=== PATIENT | male | born 1955 | race African-American/Black ===

== ENCOUNTER 2023-05-27 18:39 | Inpatient (IN) | payer OTHER, SELFPAY ==
[2023-05-27] VITALS (23 sets, daily range): BP systolic 43–148; BP diastolic 25–74; PULSE 90–144; RESP 15–28; TEMP 38.6–42.2; O2SAT 94–100
--- NOTE | ~2023-05-27 | XR_ITS ---
EXAMINATION: XR chest 1V portable DATE: 05/28/2023 05:17 INDICATION: Respiratory distress while intubated TECHNIQUE: frontal view of the chest was obtained. COMPARISON: Chest radiograph and CT dated 05/27/2023 FINDINGS: Endotracheal tube tip 0.4 cm above the klaudia. Nasogastric tube with proximal side-port in the body o f the stomach and distal tip collimated beyond the inferior margin of the [id number]. Unchanged elevation the left hemidiaphragm with unchanged associated mild left basilar atelectasis. N o new airspace opacities, pulmonary edema, pleural effusion or pneumothorax. The cardiomediastinal si lhouette is normal. IMPRESSION: 1. Elevation the left hemidiaphragm with left basilar atelectasis. 2. Endotracheal tube tip 0.4 cm above the klaudia. Reviewed, dictated and finalized at location A.
--- NOTE | ~2023-05-27 | CT_ITS ---
EXAMINATION: CT brain wo con DATE: 05/27/2023 23:37 INDICATION: Altered mental status TECHNIQUE: Computed tomography (CT) of the head was performed without intravenous contrast. Sagittal and coronal reconstructions were performed. The mA was adjusted according to patient size. Iterative reconstruction technique was employed. The dose-length product was 1362.00 mGy-cm. COMPARISON: None FINDINGS: No acute intracranial hemorrhage, acute infarction or abnormal extra axial fluid collection. There is mild scattered white matter hypoattenuation consistent with chronic small vessel ischemic disease. S ymmetric prominence of the sulci consistent with mild age-appropriate diffuse cerebral volume loss. V entricles are normal and symmetric. No mass/mass effect. Moderate mucosal thickening the left sphenoi d sinus which demonstrates thickened sclerotic alvarez consistent with chronic sinusitis. The orbits an d mastoid air cells are normal. Portion of a likely endotracheal tube is seen extending through the o ropharynx. IMPRESSION: 1. Normal aging brain. No acute intracranial process. 2. Chronic left sphenoid sinusitis. Reviewed, dictated and finalized at location A.
--- NOTE | ~2023-05-27 | US_ITS ---
EXAMINATION: US renal BI DATE: 05/28/2023 10:47 INDICATION: Acute renal insufficiency. Assess for hydronephrosis. TECHNIQUE: Multiple ultrasound grayscale images of the kidneys were obtained. COMPARISON: CT dated 05/27/2023 FINDINGS: The right kidney measures 12.0 x 5.1 x 6.9 cm. The left kidney measures 12.3 x 6.6 x 5.1 cm. There is bilateral diffuse increased renal cortical echogenicity consistent with medical renal disease. There is no hydronephrosis in either kidney. No stones identified. There is small amount of bilateral per inephric fluid which is new since the prior CT. The bladder is decompressed around a Katz catheter w hich limits evaluation. IMPRESSION: 1. Bilateral increased renal cortical echogenicity consistent with medical renal disease. No hydrone phrosis. Reviewed, dictated and finalized at location A. IMPRESSION: 1. Bilateral increased renal cortical echogenicity consistent with medical jass al disease. No hydronephrosis.
--- NOTE | ~2023-05-27 | US_ITS ---
EXAMINATION: US abdomen limited DATE: 05/28/2023 10:46 INDICATION: Elevated liver function tests TECHNIQUE: Multiple grayscale and Doppler ultrasound images of the abdomen were obtained. COMPARISON: CT dated 05/27/2023 FINDINGS: The body the pancreas appears normal on dilated main pancreatic duct which measures up to 5 mm. A few small echogenic foci along the main pancreatic duct potentially representing stones or debris. Visua lized proximal inferior vena cava is normal. Liver has normal echogenicity and contour, with a smooth surface. No liver lesion identified. No intrahepatic biliary duct dilation suspected. Portal venous flow was seen in the hepatopetal, normal direction and has normal Doppler waveform. There are numerou s shadowing gallstones in the dependent aspect of the otherwise normal gallbladder with no wall thick ening and with reported negative sonographic Kingston's sign. Common bile duct measures up to 5 mm whic h remains within normal limits. IMPRESSION: 1. Cholelithiasis without gallbladder dilation, wall thickening or positive Kingston sign to suggest ac karen cholecystitis. 2. Dilated main pancreatic duct which could represent sequela of chronic pancreatitis. A few echogeni c foci along the dilated duct which could represent stones or debris and would correlate with lipase levels. Could also consider further evaluation with MRCP as clinically indicated. Reviewed, dictated and finalized at location A. IMPRESSION: 1. Cholelithiasis without gallbladder dilation, wall thickening or positive Mur phy sign to suggest acute cholecystitis. 2. Dilated main pancreatic duct which could represent sequela of chronic pancre atitis. A few echogenic foci along the dilated duct which could represent stone s or debris and would correlate with lipase levels. Could also consider further evaluation with MRCP as clinically indicated.
--- NOTE | ~2023-05-27 | XR_ITS ---
EXAMINATION: XR_KUBGTUBINS_CR DATE: 05/28/2023 05:19 INDICATION: Orogastric tube placement TECHNIQUE: AP view of the abdomen was obtained for assessment of orogastric tube repositioning. COMPARISON: None. FINDINGS: Orogastric tube tip in proximal side port in the body of the stomach. Endotracheal tube tip 9 mm abov e the klaudia. No dilated loops of gas-filled bowel in the visualized abdomen. Elevation of left hemid iaphragm with left basilar atelectasis. Prominent dystrophic calcifications at the head the pancreas consistent with sequela of chronic pancreatitis. There are bilateral nephrograms likely related to re cent prior contrast enhanced CT . IMPRESSION: 1. Orogastric tube in the stomach. Reviewed, dictated and finalized at location A.
--- NOTE | ~2023-05-27 | XR_ITS ---
EXAMINATION: XR_KUBGTUBINS_CR DATE: 05/28/2023 08:15 INDICATION: Nasogastric tube placement TECHNIQUE: AP view of the upper abdomen and including the chest was obtained for assessment of nasoga stric tube position COMPARISON: 05/28/2023 at 4:35 AM FINDINGS: Endotracheal tube tip 2.0 cm above the klaudia. Nasogastric tube has been withdrawn slightly with tip in the proximal body of the stomach and proximal side naila couple centimeter the level of the gastro esophageal junction. Persistent elevation of left hemidiaphragm with mild left basilar atelectasis. C ardiomediastinal silhouette is normal. IMPRESSION: 1. Endotracheal tube and nasogastric tube in expected position. 2. Mild left basilar atelectasis. Reviewed, dictated and finalized at location A.
--- NOTE | ~2023-05-27 | CT_ITS ---
EXAMINATION: CT chest abdomen pelvis w con DATE: 05/27/2023 23:38 INDICATION: Sepsis. TECHNIQUE: Computed tomography (CT) of the chest, abdomen, and pelvis was performed with 100 mL Omnip aque-350 intravenous contrast. Automated exposure control and iterative reconstruction technique were employed. The dose-length product was 612.61 mGy-cm. COMPARISON: None FINDINGS: CHEST CT: Endotracheal tube tip 4 mm above level of the klaudia. Mild upper lung predominant emphysema. Bronchie ctasis, volume loss and atelectasis/scarring in the left lower lobe. There is associated elevation th e left hemidiaphragm. No pneumonia, pulmonary edema, pleural effusion or pneumothorax. Heart size is normal. No pericardial or pleural effusion. Thoracic aorta is normal in caliber with no dissection. N o pathologically enlarged thoracic lymphadenopathy. Fluid potentially refluxed within the mid to dist al esophagus. ABDOMEN/PELVIS CT: Numerous gallstones nearly filling the otherwise normal-appearing gallbladder. Liver, spleen, bilater al adrenal glands and kidneys are normal. Numerous calcifications in the head and uncinate process of the pancreas couple additional calcific location at the tail of pancreas consistent with sequela of chronic pancreatitis. There is dilation of the main pancreatic duct which measures 6 mm at the neck o f the pancreas and 4.5 mm at the tail of the pancreas which could also represent sequela of chronic p ancreatitis. No evident peripancreatic inflammatory stranding to suggest acute pancreatitis. Katz ca theter within the decompressed bladder. Fluid within multiple loops nondilated small bowel as well as in the proximal colon which could be seen with diarrhea. There is a small amount of stool in the sig moid colon and larger 7.5 cm diameter ball of stool at the rectum. There is a likely temperature prob e in the rectum. Normal appendix. No free intraperitoneal gas or fluid. No pathologically enlarged ab dominal or pelvic lymphadenopathy. There is calcified atherosclerosis of the aorta and many of the ot her arteries. Right common femoral central venous catheter as well as and right common femoral arteri al catheter with distal tips terminating in the right external iliac vein and artery respectively. Mi ld lower thoracic dextrocurvature and thoracolumbar levocurvature. IMPRESSION: 1. Scattered fluid in the small bowel and proximal colon consistent with nonspecific diarrhea. Correl ate clinically for enteritis. 2. Cholelithiasis. 3. Dilated main pancreatic duct and multiple dystrophic pancreatic parenchymal calcifications, most l ikely sequela of chronic pancreatitis. No findings to suggest acute pancreatitis however could consid er correlation with lipase levels. 4. Elevation the left hemidiaphragm with atelectasis/scarring and bronchiectatic changes at the left lower lobe. Reviewed, dictated and finalized at location A. IMPRESSION: 1. Scattered fluid in the small bowel and proximal colon consistent with nonspe cific diarrhea. Correlate clinically for enteritis. 2. Cholelithiasis. 3. Dilated main pancreatic duct and multiple dystrophic pancreatic parenchymal calcifications, most likely sequela of chronic pancreatitis. No findings to sug gest acute pancreatitis however could consider correlation with lipase levels. 4. Elevation the left hemidiaphragm with atelectasis/scarring and bronchiectati c changes at the left lower lobe.
--- NOTE | ~2023-05-27 | XR_ITS ---
XR chest 1V portable DATE: 05/29/2023 05:50 INDICATION: Respiratory distress. Mechanical ventilation. TECHNIQUE: Portable AP chest on 05/29/2023 at 0503 hours COMPARISON: 05/28/2023 portable AP chest at 0434 hours FINDINGS: ET tube in satisfactory position approximately 5 cm above klaudia. NG tube in stomach. No ce ntral lines. There is mild patchy infiltrate and/atelectasis in both lower lung zones, involving the lower lobes. The lungs otherwise appear clear. No pulmonary vascular congestion. Slight blunting of the left costo phrenic angle might indicate minimal left pleural effusion. Diffuse osteopenia. IMPRESSION: Mild patchy bibasilar infiltrate and/atelectasis Reviewed, dictated and finalized at location A.
--- NOTE | ~2023-05-27 | XR_ITS ---
EXAMINATION: XR chest 1V portable DATE: 05/27/2023 19:18 INDICATION: Post intubation TECHNIQUE: frontal view of the chest was obtained. COMPARISON: None FINDINGS: Endotracheal tube tip 6.5 cm above the klaudia. Elevation of the left hemidiaphragm. Lungs are clear w ith no focal airspace opacities, pulmonary edema, pleural effusion or pneumothorax. Heart size is nor mal. IMPRESSION: 1. Endotracheal tube tip 6.5 cm above the klaudia. Consider advancement by 4 cm. 2. Elevation the left hemidiaphragm. No other evident cardiopulmonary disease. Reviewed, dictated and finalized at location A.
--- NOTE | 2023-05-27 19:05 | ED.GENADULT ---
HPI - General Adult General Chief complaint: Unspecified Stated complaint: unresponsive Time Seen by Provider: 05/27/23 19:05 History of Present Illness HPI narrative: Patient is a 67 year old male with unknown medical history here with altered mental status. Patient was reportedly found in his vehicle, unresponsive. EMS had a normal blood glucose and was getting bagged respirations followed by a field intubation. His oral temperature for him was 106F. On arrival to ED he is unresponsive with no ability to provide history. Additional history from sister who was with him. She notes that they went to the grocery store and attempted to go inside. At that point she had noticed he seemed wobbly and had stooled himself so staff helped him into the car. His sister drove him home and noticed he was more altered. She gave him a glass of water and he could not get out of the vehicle. At this point she called EMS. Sister is DPOA. 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 Surgical History Surgical History Surgical history unknown Family History Family History Mother Hypertension Cerebrovascular accident Mother No problems noted. Other Family history unknown Social History Social History Social History: The patient lives with his sister in [place]. 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 I believe the patient is a former smoker. Surrogate medical decision maker: Jimbo or Yanick Manzanares, siblings. Code status: Full code. Smoking packs per day: 0.5 Smoking cigarettes per day: 10.0 Smoking status: Heavy tobacco smoker Tobacco type: cigarettes Second hand tobacco smoke exposure: Yes Alcohol intake: former Substance use: former Spiritual care concerns: No Exam Narrative: GENERAL: unresponsive, warm to touch HEAD: Normocephalic, atraumatic. EYES: pupils 5 mm, minimally reactive ENT: Nares clear. Mucous membranes moist. NECK: Supple. CHEST: Assisted ventilations with bag HEART: Tachycardic. Normal peripheral pulses. ABDOMEN: Soft, nontender, nondistended. EXTREMITIES: No evidence of trauma SKIN: Warm to touch NEURO: Unresponsive Course Course Emergency Course: Patient seen evaluated on EMS arrival. Unresponsive, 82 was placed by EMS. ET tube confirmed by myself with glide scope. Patient stripped, ice packs applied over her entire body. Rectal temp 109.6F. Two units of IVF ordered. Levophed ordered given hypotension. Chest x-ray shows ET tube 6 cm above klaudia, ET tube advanced. Dopamine ordered to add if patient continues to be hypotensive. SPECIAL DELIVERY WORKER came to apply rapid cooling device, rectal probe placed. Temperature downtrending to 105.4 F at this time. Cooling measures in place. Dopamine has not been initiated at this time. BP is improving. Labs being drawn at this time. Temp now 104.1F, BP stable, will wean levophed as tolerated. Lactic 6.4 Troponin 0.404 Creatinine 1.8, normal potassium Elevated AST/ALT CPK 2146 Femoral central and arterial lines placed. Will page ICU to discuss admission. Spoke with Dr. Martinez, accepts patient to ICU. Requesting chest abdomen pelvis CT and additional IVF which have been ordered. Spoke with Gunjan from hospitalist service. Vital Signs Vital signs: Vital Signs
--- NOTE | 2023-05-27 19:06 | ECG_ITS ---
Measurements Intervals [place] Rate: 102 P: 77 UT: 186 QRS: 76 QRSD: 110 T: 77 QT: 330 QTc: 430 Interpretive Statements SINUS TACHYCARDIA INCOMPLETE RIGHT BUNDLE BRANCH BLOCK [90+ ms QRS DURATION, TERMINAL R IN V1/V2, 40+ ms S IN I/aVL/V4/V5/V6] ST DEVIATION AND MODERATE T-WAVE ABNORMALITY, CONSIDER ANTERIOR ISCHEMIA [-0.1+ mV T WAVE IN V3/V4] NO PREVIOUS ECG AVAILABLE FOR COMPARISON Electronically Signed On 05-28-2023 11:36:52 CDT by Mark Suarez MD
--- NOTE | 2023-05-27 19:12 | PC.NURSE ---
patient arrived with temp of 109.6 rectally. cold wash cloths, ice packs and cooling blanket placed on patient. arrived intubated and placement checked by provider upon arrival. ET tube secured by RT. family arrived and placed in family room. provider aware
[2023-05-27] MEDS: NOREPINEPHRINE 8 MG/D5W 250 ML 8 MG/250 ML BAG 113 MG (19:16)
[2023-05-27] MEDS: SODIUM CHLORIDE 0.9% IV 3,000 ML 999 ML (19:17)
[2023-05-27] MEDS: FENTANYL 2,500MCG/NS250ML(*CRX 2,500 MCG/250 ML BAG IV CONT (19:23)
[2023-05-27 19:42] LABS: Alveolar/Arterial O2 Gradient 215.7 mmHg; Base Excess ABG -10.2 mEq/l (+/-2.0); Fractional Inspired Oxygen 100 %; HCO3 ABG 14.3 mEq/l (22.0-26.0); Oxygen Content ABG 20.3 %vol (16.0-22.0); Oxygen Saturation ABG 99.8 % (95.0-100.0); Oxyhemoglobin 98.2 % THb (90.0-100.0); PCO2 ABG 28.3 mmHg (35.0-45.0); PO2 FiO2 Ratio Arterial Blood 4.69 %; Total Hemoglobin 13.8 g/dL (12.0-18.0); pH ABG 7.322 (7.350-7.450)
[2023-05-27 19:45] LABS: Modified Allen's Test Pass; Site Drawn RIGHT BRACHIAL
[2023-05-27 19:46] LABS: Device VENTILATOR
[2023-05-27 19:47] LABS: Arterial Blood Gas Ventilator rate 18 /MIN
[2023-05-27 19:48] LABS: Arterial Blood Gas PEEP 5 cmH2O; Arterial Blood Gas Vent Mode CMV
[2023-05-27 19:49] LABS: Arterial Blood Gas Minute Volume 13.8 LPM; Arterial Blood Gas Tidal Volume 500 ml; Peak Inspiratory Pressure 17 cmH2O
[2023-05-27 20:00] LABS: Basophils Absolute Auto 0.1 K/mm3 (0.0-0.1); Basophils Percent Auto 0.8 % (0.2-1.2); Hematocrit 38.7 % (42.0-52.0); Hemoglobin 12.6 g/dL (14.0-18.0); Immature Granulocyte Absolute 0.76 K/mm3 (0.00-0.031); Lymphocytes Absolute Auto 2.34 K/mm3 (0.9-3.2); Lymphocytes Percent Auto 30.9 % (18.3-44.2); Mean Corpuscular HGB Conc 32.6 g/dl (32-36); Mean Corpuscular Hemoglobin 26.5 pg (26-34); Mean Corpuscular Volume 81.5 fl (80-100); Monocytes Absolute Auto 0.5 K/mm3 (0.1-0.6); Monocytes Percent Auto 6.2 % (2.6-8.5); Neutrophils Absolute Auto 3.9 K/mm3 (1.3-6.7); Neutrophils Percent Auto 52.1 % (45.5-73.1); Nucleated Red Blood Cells Perc 0.5 % (0.0-0.2); Platelet Count Result 174 k/mm3 (150-375); Red Blood Count 4.75 M/mm3 (4.6-6.20); Red Cell Distribution Width 15.4 % (11.5-14.5); White Blood Count 7.6 K/mm3 (4.5-10.0)
[2023-05-27 20:17] LABS: INR 1.6; Prothrombin Time 19.9 Seconds (11.1-14.7)
[2023-05-27 20:18] LABS: Partial Thromboplastin Time 35.1 SECONDS (22.3-36.8)
[2023-05-27 20:23] LABS: Platelet Estimate Adequate (Adequate)
[2023-05-27 20:24] LABS: Atypical Lymphocytes Present
[2023-05-27 20:27] LABS: Alanine Aminotransferase 94 U/L (6-50); Albumin Level 3.2 g/dL (3.5-5.1); Alkaline Phosphatase 68 U/L (38-126); Anion Gap 12 mmol/L (8-16); Aspartate Amino Transferase 179 U/L (17-59); Bilirubin,Total 2.1 mg/dL (0.2-1.3); Blood Urea Nitrogen 19 mg/dL (9-20); Calcium 7.5 mg/dL (8.4-10.2); Carbon Dioxide 16 mmol/L (22-30); Chloride 108 mmol/L (98-107); Creatine Kinase 2146 U/L (55-170); Estimated CRCL calculation 36 ml/min; Estimated Glomerular Filt Rate 46; Glucose 163 mg/dL (65-110); Lactic Acid Reflex 6.4 mmol/L (0.7-2.0); Lipase 262 U/L (23-300); Potassium 3.7 mmol/L (3.4-5.0); Sodium 136 mmol/L (137-145); Troponin I 0.404 ng/mL (0.000-0.034)
[2023-05-27 20:28] LABS: Bacteria Urine None Seen /hpf; Need Manual Microscopic Reviewed; Squamous Epithelial Cell Urine Occasional /hpf (Few); WBC Urine 0-5 /hpf
[2023-05-27 20:39] LABS: Schistocytes None Seen (NORMAL)
[2023-05-27 20:45] LABS: Appearance Urine Cloudy (Clear); Bilirubin Urine 1+ (Negative); Color Urine Orange (Yellow); Glucose Urine UA Trace mg/dL (Negative); Ketones Urine Trace mg/dL (Negative); Leukocyte Esterase Ur Trace LEU/UL (Negative); Nitrate Urine Positive (Negative); Protein Urine 2+ mg/dL (Negative); Specific Grav Ur 1.023 (1.001-1.035); Urobilinogen Urine >=8.0 mg/dL (<2.0); pH Urine 5.5 (5.0-9.0)
[2023-05-27] MEDS: MIDAZOLAM 100MG/NS 100ML(*CRX) 100 MG/100 ML BAG IV CONT (20:46)
[2023-05-27 20:48] LABS: Add Urine Microscopic? YES
[2023-05-27 22:58] LABS: Reflex Lactic Acid Yes or No Add Lactic
--- NOTE | 2023-05-27 23:06 | PM.IMHP ---
H&P: HPI History of Present Illness Date/Time: 05/27/23 22:00 Chief Complaint: Unresponsive. Narrative: This is a 67-year-old male with history of dementia and alcohol and drug abuse though not active who presented to the emergency department via EMS from home after he became unresponsive. He is currently sedated and intubated and unable to provide history. As such of the following is obtained via a review of his EMR as well as information obtained from his sister. Earlier today the patient and his sister went to the grocery store and he had difficulties ambulating to the entrance and was ?wobbly.? He then apparently had an episode of fecal incontinence and staff assisted them back to their car. On the way home, he became confused and by the time they arrived at home he was essentially unresponsive. He called 911 and he was intubated in the field. On arrival to the emergency department his temperature was 108? F and he was placed under cooling blanket. It has since come to light that the patient and his sister lives together and they do not have air conditioning in the home. Blood pressure was as low as 43/25 and did respond to IV fluids however he eventually required vasopressor support and a central line was inserted as well as an art line. Labs in the ED were significant for WBC count of 7.6, hemoglobin 12.6, sodium 136, chloride 1 week, carbon dioxide 16, creatinine 1.80, lactic acid 6.4, 163, total bilirubin 2.1, AST 179, ALT 94, total CK 2146, troponin 0.404. Are chest x-ray showed elevation of the left hemidiaphragm with no evidence of cardiopulmonary disease. EKG shows a sinus tachycardia with minimal diffuse ST depressions. He received a total of 3 L of crystalloids and norepinephrine is being weaned. He is being admitted to the ICU in this setting for further treatment and evaluation. Review of Systems Review of Systems: Unable to obtain given clinical condition. [facility] Past Medical History Medical History Dementia History of substance abuse History of alcohol and heroin abuse, 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 Surgical History Surgical History Surgical history unknown Family History Family History Mother Hypertension Cerebrovascular accident Mother No problems noted. Other Family history unknown Social History Social History Social History: The patient lives with his sister in [place]. 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 I believe the patient is a former smoker. Surrogate medical decision maker: Jimbo or Yanick Manzanares, siblings. Code status: Full code. Smoking packs per day: 0.5 Smoking cigarettes per day: 10.0 Smoking status: Heavy tobacco smoker Tobacco type: cigarettes Second hand tobacco smoke exposure: Yes Alcohol intake: former Substance use: former Spiritual care concerns: No Meds Home Medications and Allergies Home Medications Medication Instructions Recorded Confirmed Type No Home Medications 05/28/23 05/28/23 History Allergies Allergy/AdvReac Type Severity Reaction Status Date / Time No Known Allergies Allergy Unverified 04/14/15 13:32 Vital Signs Vital Signs - 24 hr 05/27/23 18:39 05/27/23 19:00 05/27/23 19:16 Temperature 108 F H Pulse Rate 128 H 144 H 128 H Respiratory Rate 26 H 26 H Blood Pressure 43/25 L 63/38 L 85/46 L Pulse Oximetry 94 94 Oxygen Delivery Mechanical Ventilation Fraction of Inspired Oxygen 05/27/23 19:23 05/27/23 19:26 05/27/23 19:36 Temperature Pulse Rate 124 H 124 H 135 H Respiratory Rate 25 H 28 H Blood Pressure Pulse Oximetry Oxygen Delivery Fraction of Inspired Oxygen 05/27/23 20:15 05/27/23 20:18 05/27/23 20:46 Temperature 104.1 F H Pulse Ra
--- NOTE | 2023-05-27 23:12 | PC.NURSE ---
Per Gunjan Rao PA-C, complete CT scans prior to admitting patient to ICU.
[2023-05-27] MEDS: NOREPINEPHRINE 8 MG/D5W 250 ML 8 MG/250 ML BAG 9.38 MG IV CONT (23:38)
[2023-05-28] VITALS (75 sets, daily range): BP systolic 81–151; BP diastolic 40–82; PULSE 79–706; RESP 15–30; TEMP 35.4–38.4; O2SAT 95–100
[2023-05-28] MEDS: PIPERACILLIN/TAZ 2.25G/NS 50ML 2.25 GM/50 ML BAG IVPB ×5 (00:59→23:47)
[2023-05-28] MEDS: SODIUM CHLORIDE 0.9% IV 1,000 ML 999 ML IV CONT ×2 (01:04→07:59)
[2023-05-28] MEDS: LACTATED RINGERS 1,000 ML 150 ML IV CONT (01:08)
[2023-05-28] MEDS: PIPERACILLN/TAZ 3.375GM/NS50ML 3.375 GM/50 ML BAG IVPB (01:09)
[2023-05-28 01:16] LABS: Amphetamine Screen Urine Negative (Negative); Barbiturate Screen Urine Negative (Negative); Benzodiazepines Screen Urine Negative (Negative); Cannabinoid Screen Urine Negative (Negative); Cocaine Screen Urine Negative (Negative); Methadone Screen Urine Negative (Negative); Opiate Screen Urine Negative (Negative); Phencyclidine Screen Urine Negative (Negative)
[2023-05-28 01:17] LABS: Alveolar/Arterial O2 Gradient 191.2 mmHg; Base Excess ABG -7.6 mEq/l (+/-2.0); Carboxyhemoglobin 0.3 % THb (0-2.0); Fractional Inspired Oxygen 50 %; HCO3 ABG 17.4 mEq/l (22.0-26.0); Methemoglobin ABG 0.5 %THb (0-1.5); Oxygen Content ABG 20.6 %vol (16.0-22.0); Oxygen Saturation ABG 98.4 % (95.0-100.0); Oxyhemoglobin 96.9 % THb (90.0-100.0); PCO2 ABG 33.9 mmHg (35.0-45.0); PO2 ABG 127.2 mmHg (80.0-100.0); PO2 FiO2 Ratio Arterial Blood 2.54 %; Reduced Hemoglobin 2.3 %THb (0-5.0); pH ABG 7.327 (7.350-7.450)
[2023-05-28 01:18] LABS: Site Drawn ARTLINE
[2023-05-28 01:19] LABS: Device VENTILATOR
[2023-05-28 01:20] LABS: Arterial Blood Gas PEEP 5 cmH2O; Arterial Blood Gas Tidal Volume 500 ml; Arterial Blood Gas Vent Mode CMV; Arterial Blood Gas Ventilator rate 18 /MIN
[2023-05-28 01:21] LABS: Arterial Blood Gas Minute Volume 10.8 LPM; Peak Inspiratory Pressure 15 cmH2O
--- NOTE | 2023-05-28 02:14 | PC.NURSE ---
spoke with hospitalist about treatment for patient's fever. Dr. Cope advised to stop cooling device and reevaluate patient in one hour. Advised to withhold Tylenol suppository until reevaluation.
--- NOTE | 2023-05-28 03:15 | ADMGEN ---
This patient, Pedro Bowman, was admitted to Intensive Care Unit-6. Patient/family oriented to hospital policies and general routines including ID bracelet, bed and alarms, visiting hours, pain management, procedures, bathroom and other care routines, personal items, smoking policy, room service/diet, and visiting hours. Information on how to activate the Rapid Response Team has been discussed. Patient/Family are encouraged to report perceived risks to care and to ask questions if they do not understand what they are told or what they should do.
[2023-05-28 04:06] LABS: Lactic Acid Reflex 1.1 mmol/L (0.7-2.0)
[2023-05-28 04:06] LABS: Ammonia < 9 umol/L (9-30)
[2023-05-28 04:15] LABS: Alanine Aminotransferase 250 U/L (6-50); Albumin Level 3.1 g/dL (3.5-5.1); Alkaline Phosphatase 88 U/L (38-126); Anion Gap 5 mmol/L (8-16); Aspartate Amino Transferase 689 U/L (17-59); Bilirubin,Total 2.7 mg/dL (0.2-1.3); Blood Urea Nitrogen 30 mg/dL (9-20); Calcium 6.8 mg/dL (8.4-10.2); Carbon Dioxide 19 mmol/L (22-30); Chloride 108 mmol/L (98-107); Estimated CRCL calculation 22 ml/min; Estimated Glomerular Filt Rate 25; Glucose 109 mg/dL (65-110); Magnesium 1.9 mg/dL (1.6-2.3); Potassium 3.3 mmol/L (3.4-5.0); Sodium 132 mmol/L (137-145)
[2023-05-28 04:36] LABS: Hepatitis B Surface Antigen Negative (Negative)
[2023-05-28] MEDS: LORazepam INJ (*CRX) 2 MG/ML VIAL 1 MG IV PUSH ×2 (04:40→05:41)
[2023-05-28 04:42] LABS: HAV RESULT Negative (Negative); Hepatitis B Core IgM Result Negative (Negative)
[2023-05-28] MEDS: levETIRAcetam 1000MG/NACL100ML 1,000 MG/100 ML BAG 400 MG IVPB ×2 (04:50→06:33)
[2023-05-28 04:58] LABS: Creatine Kinase > 16000 U/L (55-170); Hepatitis C Virus Antibody Reactive (Negative)
--- NOTE | 2023-05-28 05:05 | PC.NURSE ---
~0100 Per Gunjan mccarthy to admit to ICU even though official read is not back on CT scans.
[2023-05-28 05:16] LABS: Basophils Percent Auto 0.3 % (0.2-1.2); Hematocrit 43.6 % (42.0-52.0); Hemoglobin 14.4 g/dL (14.0-18.0); Immature Granulocyte Absolute 0.07 K/mm3 (0.00-0.031); Immature Granulocyte Percent A 0.7 % (0-0.5); Immature Platelet Fraction Pct 5.5 % (0.9-11.2); Lymphocytes Absolute Auto 0.51 K/mm3 (0.9-3.2); Lymphocytes Percent Auto 4.9 % (18.3-44.2); Mean Corpuscular Hemoglobin 26.2 pg (26-34); Mean Corpuscular Volume 79.4 fl (80-100); Monocytes Percent Auto 9.8 % (2.6-8.5); Neutrophils Absolute Auto 8.8 K/mm3 (1.3-6.7); Neutrophils Percent Auto 84.3 % (45.5-73.1); Nucleated Red Blood Cells Perc 0.2 % (0.0-0.2); Platelet Count Result 88 k/mm3 (150-375); Red Blood Count 5.49 M/mm3 (4.6-6.20); Red Cell Distribution Width 16.7 % (11.5-14.5); White Blood Count 10.4 K/mm3 (4.5-10.0)
[2023-05-28] MEDS: PANTOPRAZOLE SODIUM IV 40 MG VIAL IV PUSH ×2 (05:21→20:45)
[2023-05-28] MEDS: KCL 40 MEQ/WATER 100 ML 100 ML 25 ML IVPB (05:22)
[2023-05-28 05:37] LABS: Base Excess ABG -12.9 mEq/l (+/-2.0); Carboxyhemoglobin 0.3 % THb (0-2.0); Fractional Inspired Oxygen 50 %; HCO3 ABG 15.5 mEq/l (22.0-26.0); Methemoglobin ABG 0.5 %THb (0-1.5); Oxygen Content ABG 20.7 %vol (16.0-22.0); Oxygen Saturation ABG 97.2 % (95.0-100.0); Oxyhemoglobin 96.4 % THb (90.0-100.0); PCO2 ABG 44.6 mmHg (35.0-45.0); PO2 ABG 118.3 mmHg (80.0-100.0); PO2 FiO2 Ratio Arterial Blood 2.37 %; Reduced Hemoglobin 2.8 %THb (0-5.0); Total Hemoglobin 15.2 g/dL (12.0-18.0)
[2023-05-28 05:45] LABS: Device VENTILATOR; Site Drawn ARTLINE; pH ABG 7.159 (7.350-7.450)
[2023-05-28 05:47] LABS: Arterial Blood Gas PEEP 5 cmH2O; Arterial Blood Gas Vent Mode CMV; Arterial Blood Gas Ventilator rate 18 /MIN
[2023-05-28 05:48] LABS: Arterial Blood Gas Tidal Volume 500 ml
[2023-05-28] MEDS: NOREPINEPHRINE 8 MG/D5W 250 ML 8 MG/250 ML BAG 9.38 MG IV CONT (06:00)
[2023-05-28] MEDS: CENTRAL LINE FLUSH 10 ML IV PUSH ×4 (06:07→22:55)
[2023-05-28] MEDS: SODIUM BICARBONATE 8.4% 50 MEQ/50 ML SYRINGE 100 MEQ IV PUSH (06:32)
--- NOTE | 2023-05-28 07:00 | ECG_ITS ---
Measurements Intervals [place] Rate: 110 P: [place]: 0 QRS: 87 QRSD: 94 T: 121 QT: 336 QTc: 455 Interpretive Statements SINUS TACHYCARDIA POSSIBLE RIGHT VENTRICULAR CONDUCTION DELAY [RSR (QR) IN V1/V2] NONSPECIFIC ST & T-WAVE ABNORMALITY ABNORMAL RHYTHM ECG COMPARED TO ECG 05/27/2023 20:41:09 ATRIAL FLUTTER NOW PRESENT Electronically Signed On 05-28-2023 11:39:30 CDT by Mark Suarez MD
[2023-05-28 07:22] LABS: INR 2.3
[2023-05-28 07:23] LABS: Partial Thromboplastin Time 47.1 SECONDS (22.3-36.8)
[2023-05-28] MEDS: MIDAZOLAM HCL (*CRX) 2 MG/2 ML VIAL 4 MG IV PUSH (08:04)
[2023-05-28 08:17] LABS: Magnesium 1.8 mg/dL (1.6-2.3)
[2023-05-28] MEDS: levETIRAcetam 500MG/NACL 100ML 500 MG/100 ML BAG 400 MG IVPB ×2 (08:21→20:45)
[2023-05-28 08:22] LABS: Immature Platelet Fraction Pct 6.6 % (0.9-11.2); Mean Platelet Volume 10.3 fl (7.4-10.4); Platelet Count Result 78 k/mm3 (150-375)
[2023-05-28] MEDS: SODIUM BICARBONATE 8.4% 150 MEQ in DEXTROSE 5% 1,000 ML 950 ML 125 MEQ IV CONT ×2 (08:30→17:18)
[2023-05-28 08:31] LABS: Fibrinogen 155 mg/dl (215-510)
[2023-05-28] MEDS: ROCURONIUM BROMIDE 50 MG/5 ML VIAL IV PUSH (08:41)
[2023-05-28 09:00] LABS: SARS-CoV-2 RNA PCR Negative (Negative)
--- NOTE | 2023-05-28 09:10 | WPDCNINT ---
Assessment and Plan Assessment and plan (1) Heat stroke: Qualifiers: Encounter type: initial encounter Qualified Code(s): T67.01XA - Heatstroke and sunstroke, initial encounter Code(s): T67.01XA - Heatstroke and sunstroke, initial encounter Status: Acute Assessment and Plan: Due to the weather this week being significantly heart with excessive heat warning. Patient does not have air conditioning at home or in his car. He went with assisted to do groceries and of found to be unstable and wobbly on his feet, he also had fecal incontinence, the grocery store staff assisted him back in the car. Was patient reached home, he was found unresponsive and EMS was called. -in the ER patient's core body temperature was 109.6?F -patient was emergently cooled with ice packs and cooling blanket from the ICU -currently body temperature is within normal limits (2) Acute respiratory failure: Code(s): J96.00 - Acute respiratory failure, unspecified whether with hypoxia or hypercapnia Status: Acute Assessment and Plan: Patient was unresponsive, requiring intubation, mechanical ventilation -intubated on 05/28/2023 in the ER -currently on CMV mode of ventilation, peep of 5, 50% FiO2 -ABGs reviewed, ventilator adjusted -chest x-ray this mornin. Elevation the left hemidiaphragm with left basilar atelectasis.2. Endotracheal tube tip 0.4 cm above the klaudia. -endotracheal tube was readjusted and withdrawn 3 cm -will add bronchodilators -sedated with fentanyl and Versed infusion, maintain RASS of -2 (3) Rhabdomyolysis: Qualifiers: Rhabdomyolysis type: non-traumatic Qualified Code(s): M62.82 - Rhabdomyolysis Code(s): M62.82 - Rhabdomyolysis Status: Acute Assessment and Plan: Patient has developed rhabdomyolysis likely secondary to heat stroke/exertion heat illness -patient has received 3 L IV fluids in the ER and the ICU -CK levels remain elevated -will give additional IV fluid bolus -will switch to sodium bicarb infusion -continue to trend CK level (4) Acute kidney injury: Code(s): N17.9 - Acute kidney failure, unspecified Status: Acute Assessment and Plan: Acute kidney injury most likely related to rhabdomyolysis, hypovolemia, heating stroke hypotension, shock -urine output is low -creatinine has increased -continue maintenance IV fluids with sodium bicarb infusion -nephrology has been consulted -will obtain urine lytes and renal ultrasound, will obtain urine eosinophils (5) Elevated troponin: Code(s): R77.8 - Other specified abnormalities of plasma proteins Status: Acute Assessment and Plan: elevated troponin, likely ACS or myocardial injury due to heart stroke, renal injury, shock -troponin 0.404--> 3.370--> 4.790 -d/w cardiology, will hold heparin infusion -start asa 81 mg will trend troponin (6) Transaminitis: Code(s): R74.01 - Elevation of levels of liver transaminase levels Status: Acute Assessment and Plan: Liver dysfunction, with elevated LFTs likely due to heat stroke illness continue to maintain MAP > 70 mmHg for adequate end organ perfusion (7) Shock: Code(s): R57.9 - Shock, unspecified Status: Acute Assessment and Plan: Pt presented with hypotension, has been adequately fluid resuscitated Central line inserted in ER -continue levophed, Maintain MAP > 70 mmHg - started on zosyn (05/27) - CXR: Elevation the left hemidiaphragm with left basilar atelectasis. 05/27: Chest chest/abdomen/pelvis 1. Scattered fluid in the small bowel and proximal colon consistent with nonspecific diarrhea. Correlate clinically for enteritis. 2. Cholelithiasis. 3. Dilated main pancreatic duct and multiple dystrophic pancreatic parenchymal calcifications, most likely sequela of chronic pancreatitis. No findings to suggest acute pancreatitis however could consider correlation with lipase levels. 4. Elevation
--- NOTE | 2023-05-28 09:53 | PM.CNCAR ---
Assessment and Plan Assessment and plan (1) Elevated troponin: Code(s): R77.8 - Other specified abnormalities of plasma proteins Status: Acute Assessment and Plan: In regards to troponin elevation, patient presented to the hospital with heat stroke with core temperature 109?. Evidence of acute renal failure, hypotension, rhabdomyolysis. Suspect that this is all demand ischemia. Troponins elevated at 4.8. Recommend to repeat troponin and if it is trending up we can start on heparin. Will obtain echocardiogram to further assess. (2) Heat stroke: Qualifiers: Encounter type: initial encounter Qualified Code(s): T67.01XA - Heatstroke and sunstroke, initial encounter Code(s): T67.01XA - Heatstroke and sunstroke, initial encounter Status: Acute Assessment and Plan: Core temperature on arrival 109. Currently being treated (3) Rhabdomyolysis: Qualifiers: Rhabdomyolysis type: non-traumatic Qualified Code(s): M62.82 - Rhabdomyolysis Code(s): M62.82 - Rhabdomyolysis Status: Acute Assessment and Plan: CPK above 16,000. Received IV fluids. (4) Acute hypotension: Code(s): I95.9 - Hypotension, unspecified Status: Acute Assessment and Plan: Being resuscitated with IV fluids. Obtain echo History of Present Illness History of Present Illness Consult date/time: date of service :05/28/23 09:53 Requesting physician: Mark Suarez MD Consult reason: Other Reason For Visit: hyperthermia Narrative: 67-year-old patient ?history of dementia and alcohol and drug abuse. Apparently has not had a conditioning at home. Him and his sister went to grocery store and his gait was wobbly and apparently had fecal incontinence. He was assisted back to the home and on arrival home became unresponsive. EMS arrived and intubated. Brought into the emergency room. Blood pressure low with systolic in the 40s. Core temperature 109?. BUN 30, creatinine 3, white cell count 10.6, platelet count 88 and dropped to 78, elevated AST, ALT, to an 4.8, CPK more than 16,000. Chest x-ray reviewed analyze myself shows hyperinflation. EKG reviewed and as well so shows sinus rhythm, diffuse minimal ST depression, and incomplete right bundle Review of Systems Review of Systems: Unable to obtain in because patient is intubated. No family on bedside. 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 Surgical History Surgical History Surgical history unknown Family History Family History Mother Hypertension Cerebrovascular accident Mother No problems noted. Other Family history unknown Social History Social History Social History: The patient lives with his sister in [place]. 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 I believe the patient is a former smoker. Surrogate medical decision maker: Jimbo or Yanick Manzanares, siblings. Code status: Full code. Smoking packs per day: 0.5 Smoking cigarettes per day: 10.0 Smoking status: Heavy tobacco smoker Tobacco type: cigarettes Second hand tobacco smoke exposure: Yes Alcohol intake: former Substance use: former Spiritual care concerns: No Meds Home Medications and Allergies Home Medications Medication Instructions Recorded Confirmed Type No Home Medications 05/28/23 05/28/23 History Allergies Allergy/AdvReac Type Severity Reaction Status Date / Time No Known Allergies Allergy Unverified 04/14/15 13:32 Vital Signs Vital Signs - 24 hr 05/27/23 18:39
[2023-05-28 10:23] LABS: D Dimer > 20.00 ug/mL (<0.48)
[2023-05-28 10:47] LABS: Alveolar/Arterial O2 Gradient 119.1 mmHg; Base Excess ABG -9.6 mEq/l (+/-2.0); Fractional Inspired Oxygen 50 %; HCO3 ABG 14.3 mEq/l (22.0-26.0); Oxygen Content ABG 20.8 %vol (16.0-22.0); Oxygen Saturation ABG 99.4 % (95.0-100.0); Oxyhemoglobin 97.8 % THb (90.0-100.0); PCO2 ABG 26.6 mmHg (35.0-45.0); PO2 ABG 207.5 mmHg (80.0-100.0); PO2 FiO2 Ratio Arterial Blood 4.15 %; Total Hemoglobin 14.8 g/dL (12.0-18.0)
[2023-05-28 10:50] LABS: Modified Allen's Test Pass; Site Drawn RIGHT RADIAL
[2023-05-28 10:55] LABS: pH ABG 7.347 (7.350-7.450)
[2023-05-28 11:24] LABS: Creatinine Urine 42.3 mg/dL
--- NOTE | 2023-05-28 11:30 | PM.IMPN ---
Progress Note: A&P Assessment and Plan (1) Heat stroke: Qualifiers: Encounter type: initial encounter Qualified Code(s): T67.01XA - Heatstroke and sunstroke, initial encounter Code(s): T67.01XA - Heatstroke and sunstroke, initial encounter Status: Acute Assessment and Plan: Due to the weather this week being significantly heart with excessive heat warning. Patient does not have air conditioning at home or in his car. He went with assisted to do groceries and of found to be unstable and wobbly on his feet, he also had fecal incontinence, the grocery store staff assisted him back in the car. Was patient reached home, he was found unresponsive and EMS was called. Improved. Continue monitoring and treatment the ICU. (2) Acute respiratory failure: Code(s): J96.00 - Acute respiratory failure, unspecified whether with hypoxia or hypercapnia Status: Acute Assessment and Plan: Per ICU physician (3) Rhabdomyolysis: Qualifiers: Rhabdomyolysis type: non-traumatic Qualified Code(s): M62.82 - Rhabdomyolysis Code(s): M62.82 - Rhabdomyolysis Status: Acute Assessment and Plan: Monitor CK. Continue IV fluids. Monitor kidney function and electrolytes (4) Acute kidney injury: Code(s): N17.9 - Acute kidney failure, unspecified Status: Acute Assessment and Plan: Likely secondary to above. (5) Elevated troponin: Code(s): R77.8 - Other specified abnormalities of plasma proteins Status: Acute Assessment and Plan: Likely secondary to above. Trend troponin (6) Transaminitis: Code(s): R74.01 - Elevation of levels of liver transaminase levels Status: Acute Assessment and Plan: Likely secondary to above (7) Shock: Code(s): R57.9 - Shock, unspecified Status: Acute Assessment and Plan: Secondary to above, continue supportive care in the ICU (8) Encephalopathy: Code(s): G93.40 - Encephalopathy, unspecified Status: Acute Assessment and Plan: multifatorial: treat underlying causes (9) Seizures: Code(s): R56.9 - Unspecified convulsions Status: Acute Assessment and Plan: Seizure-like activity noted in the ER and by bedside RN -patient has been started on Keppra (10) Coagulopathy: Code(s): D68.9 - Coagulation defect, unspecified Status: Acute Assessment and Plan: Coagulopathy likely related to heat stroke, liver dysfunction -low platelet count, low fibrinogen, elevated PT/INR -will transfuse FFP and cryoprecipitate Subjective Date/time seen: 05/28/23 11:30 Interval history: Intubated Exam Narrative: General: Patient is intubated, over breathing the ventilator, in no acute distress HEENT:? Pupils pinpoint and sluggish, sclera is clear ETT in place Neck:? Supple Respiratory:? Adequate air entry, coarse breath sounds, decreased at bases, no wheezing Cardiac:? S1-S2 is normal, sinus tachycardia Abdomen:? Soft, nontender, nondistended, very hypoactive bowel sounds Extremities:? No edema, palpable pedal pulses, unkempt nails Neuro:? Patient is sedated, intubated, does not open his eyes or follow simple commands Skin:? Warm and dry Psych:? Unable to assess at this time Objective Data Vital Signs Vital Signs: Vital Signs - 24 hr 05/27/23 18:39 05/27/23 19:00 05/27/23 19:16 Temperature 108 F H Pulse Rate 128 H 144 H 128 H Respiratory Rate 26 H 26 H Blood Pressure 43/25 L 63/38 L 85/46 L Pulse Oximetry 94 94 Oxygen Delivery Mechanical Ventilation Fraction of Inspired Oxygen 05/27/23 19:23 05/27/23 19:26 05/27/23 19:36 Temperature Pulse Rate 124 H 124 H 135 H Respiratory Rate 25 H 28 H Blood Pressure Pulse Oximetry Oxygen Delivery Fraction of Inspired Oxygen 05/27/23 20:15 05/27/23 20:18 05/27/23 20:46 Temperature 104.1 F H Pulse Rate 112 H 114 H 107 H Respira
[2023-05-28 11:31] LABS: Potassium Urine Random 28.4 meq/L; Sodium Urine Random 79 meq/L
[2023-05-28] MEDS: ASPIRIN 81 MG CHEWABLE TABLET PO (12:02)
[2023-05-28 12:03] LABS: Eosinophil Urine None Seen % (None Seen); Urine Eos QC 2nd Tech Confirmed
[2023-05-28 12:12] LABS: Arterial Blood Gas PEEP 5 cmH2O; Arterial Blood Gas Tidal Volume 500 ml; Arterial Blood Gas Vent Mode CMV; Arterial Blood Gas Ventilator rate 22 /MIN; Device VENTILATOR
--- NOTE | 2023-05-28 12:45 | PM.CNNEP ---
Assessment and Plan Assessment and plan (1) Acute kidney injury: Code(s): N17.9 - Acute kidney failure, unspecified Status: Acute Assessment and Plan: unknown baseline creatinine make a component of CKD based on available history (i.e alcohol and drug abuse) suspect ATN with multifactorial etiology: rhabodomyolysis prerenal factors/hypovolemia heat stroke/elevated body temperature hemodynamic instability/hypotension shock element of sepsis (?) follow-up on urine studies and renal ultrasound agree with bicarb fluids for now rapid rise in creatinine associated with diminished urine output concerning 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 follow trend of repeat labs and UOP (2) Heat stroke: Qualifiers: Encounter type: initial encounter Qualified Code(s): T67.01XA - Heatstroke and sunstroke, initial encounter Code(s): T67.01XA - Heatstroke and sunstroke, initial encounter Status: Acute Assessment and Plan: as noted by body temperature of 109.6 degrees on admission emergently cooled with ice packs and cooling blanket temperature has since improved discovered patient was without air conditioning this week in spite of excessive heat warnings continue supportive therapy (3) Shock: Code(s): R57.9 - Shock, unspecified Status: Acute Assessment and Plan: as noted on presentation with systolic BPs reportedly in the 40s s/p aggressive IVF resuscitation in ER and ICU required central line placement and initiation of vasopressor therapy imaging to date noted follow culture data empiric antibiotics follow trend of hemodynamics (4) Acute respiratory failure: Code(s): J96.00 - Acute respiratory failure, unspecified whether with hypoxia or hypercapnia Status: Acute Assessment and Plan: intubated in ER due to being unresponsive and inability to protect airway remains on mechanical ventilation weaning when more stable (5) Rhabdomyolysis: Qualifiers: Rhabdomyolysis type: non-traumatic Qualified Code(s): M62.82 - Rhabdomyolysis Code(s): M62.82 - Rhabdomyolysis Status: Acute Assessment and Plan: likely precipitated by heat stroke/elevated body temperatures s/p aggressive IVF resuscitation (~ 3L) in the ER and ICU CK noted to quite elevated -- follow serial CPK levels IVFs changed to bicarb infusion (6) Elevated troponin: Code(s): R77.8 - Other specified abnormalities of plasma proteins Status: Acute Assessment and Plan: trend noted suspect demand ischemia given acute illness Cardiology following with recommendations noted (7) Transaminitis: Code(s): R74.01 - Elevation of levels of liver transaminase levels Status: Acute Assessment and Plan: due to hemodynamic instability and heat stroke complicated by coagulopathy as well noted low platelet count and fibrinogen FFP and cryoprecipitate to be given follow PT/INR continue efforts to maintain MAP (8) Seizures: Code(s): R56.9 - Unspecified convulsions Status: Acute Assessment and Plan: seizure-like activity noted in ER and by staff (possible an issue earlier given noted history of fecal incontinence REPRESENTATIVE) started on Keppra on sedation > 20 min was spent in detail review of the electronic medical record as well as discussion with the physicians/nurses involved in the patient's care as no family members were available and the patient is unable to assist in events leading up to his admission/ hospitalization. the patient is at high risk for requiring renal replacement therapy/dialysis given his ongoing renal dysfunction precipitated by his heat stroke, rhabdomyolysis, and hemodynamic instability. I will continue to follow the patient with you while he remains hospitalized and make further recommendations as needed. Thank you for allowing me to p
--- NOTE | 2023-05-28 12:45 | P.CONNP_ITS ---
Assessment and Plan Assessment and plan (1) Acute kidney injury: Code(s): N17.9 - Acute kidney failure, unspecified Status: Acute Assessment and Plan: * unknown baseline creatinine * make a component of CKD based on available history (i.e alcohol and drug abuse) * suspect ATN with multifactorial etiology: * rhabodomyolysis * prerenal factors/hypovolemia * heat stroke/elevated body temperature * hemodynamic instability/hypotension * shock * element of sepsis (?) * follow-up on urine studies and renal ultrasound * agree with bicarb fluids for now * rapid rise in creatinine associated with diminished urine output concerning * he remains at 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 risk for 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/dialysis * follow trend of repeat labs and UOP (2) Heat stroke: Qualifiers: Encounter type: initial encounter Qualified Code(s): T67.01XA - Heatstroke and sunstroke, initial encounter Code(s): T67.01XA - Heatstroke and sunstroke, initial encounter Status: Acute Assessment and Plan: * as noted by body temperature of 109.6 degrees on admission * emergently cooled with ice packs and cooling blanket * temperature has since improved * discovered patient was without air conditioning this week in spite of excessive heat warnings * continue supportive therapy (3) Shock: Code(s): R57.9 - Shock, unspecified Status: Acute Assessment and Plan: * as noted on presentation with systolic BPs reportedly in the 40s * s/p aggressive IVF resuscitation in ER and ICU * required central line placement and initiation of vasopressor therapy * imaging to date noted * follow culture data * empiric antibiotics * follow trend of hemodynamics (4) Acute respiratory failure: Code(s): J96.00 - Acute respiratory failure, unspecified whether with hypoxia or hypercapnia Status: Acute Assessment and Plan: * intubated in ER due to being unresponsive and inability to protect airway * remains on mechanical ventilation * weaning when more stable (5) Rhabdomyolysis: Qualifiers: Rhabdomyolysis type: non-traumatic Qualified Code(s): M62.82 - Rhabdomyolysis Code(s): M62.82 - Rhabdomyolysis Status: Acute Assessment and Plan: * likely precipitated by heat stroke/elevated body temperatures * s/p aggressive IVF resuscitation (~ 3L) in the ER and ICU * CK noted to quite elevated -- follow serial CPK levels * IVFs changed to bicarb infusion (6) Elevated troponin: Code(s): R77.8 - Other specified abnormalities of plasma proteins Status: Acute Assessment and Plan: * trend noted * suspect demand ischemia given acute illness * Cardiology following with recommendations noted (7) Transaminitis: Code(s): R74.01 - Elevation of levels of liver transaminase levels Status: Acute Assessment and Plan: * due to hemodynamic instability and heat stroke * complicated by coagulopathy as well * noted low platelet count and fibrinogen * FFP and cryoprecipitate to be given * follow PT/INR * continue efforts to maintain MAP (8) Seizures: Code(s): R56.9 - Unspecified convulsions Status: Acute Assessment and Plan: * seizure-like activity noted in ER and by staff (possible an issue earlier given noted history of fecal incontinence 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
[2023-05-28] MEDS: IPRATROPIUM BR 0.02% INH SOLN 0.5 MG/2.5 ML VIAL INHALATION ×2 (13:02→20:23)
[2023-05-28] MEDS: LEVALBUTEROL NEB 1.25 MG/3 ML 0.63 MG INHALATION ×2 (13:02→20:23)
[2023-05-28] MEDS: SODIUM CHLORIDE 0.9% IV 250 ML 30 ML IV CONT (13:52)
[2023-05-28] MEDS: MIDAZOLAM 100MG/NS 100ML(*CRX) 100 MG/100 ML BAG 6 MG IV CONT (15:39)
[2023-05-28] MEDS: FENTANYL 2,500MCG/NS250ML(*CRX 2,500 MCG/250 ML BAG 15 MCG IV CONT (15:40)
--- NOTE | 2023-05-28 15:53 | PC.NURSE ---
at 0814 on 05/28/23 Fentanyl rate was changed from 75mcg to 150mcg per dr. key verbal order.
[2023-05-28] MEDS: ALTEPLASE 2 MG VIAL (CATHFLO) IV PUSH (16:26)
[2023-05-28] MEDS: WATER, STERILE FOR INJECTION 10 ML VIAL XX (17:02)
[2023-05-28] MEDS: VASOPRESSIN INJ 100 UNITS in DEXTROSE 5% 95 ML IV CONT (17:05)
[2023-05-28] MEDS: ALBUMIN HUMAN 25% 25 GM/100 ML 100 ML IVPB ×2 (17:16→23:47)
[2023-05-28] MEDS: NOREPINEPHRINE 8 MG/D5W 250 ML 8 MG/250 ML BAG 37.5 MG IV CONT (17:22)
[2023-05-28 17:26] LABS: Glucose Point of Care 113 mg/dl (65-105)
[2023-05-28] MEDS: MINERAL OIL/WHITE PETROLATUM OINTMENT 1 APPLIC EACH EYE (20:45)
[2023-05-28 20:49] LABS: Albumin Level 2.9 g/dL (3.5-5.1); Alkaline Phosphatase 65 U/L (38-126); Anion Gap 13 mmol/L (8-16); Aspartate Amino Transferase 687 U/L (17-59); Bilirubin,Total 3.3 mg/dL (0.2-1.3); Blood Urea Nitrogen 39 mg/dL (9-20); Calcium 7.1 mg/dL (8.4-10.2); Carbon Dioxide 19 mmol/L (22-30); Chloride 105 mmol/L (98-107); Estimated CRCL calculation 16 ml/min; Estimated Glomerular Filt Rate 18; Glucose 140 mg/dL (65-110); Potassium 3.4 mmol/L (3.4-5.0); Sodium 137 mmol/L (137-145)
[2023-05-28 20:56] LABS: Alanine Aminotransferase 405 U/L (6-50)
[2023-05-28 23:48] LABS: Glucose Point of Care 116 mg/dl (65-105)
[2023-05-28] MEDS: NOREPINEPHRINE 8 MG/D5W 250 ML 8 MG/250 ML BAG 31.88 MG IV CONT (23:48)
--- NOTE | 2023-05-28 23:50 | ECHO_ITS ---
Patient Info Name: Pedro Bowman Age: 67 years : 1955 Gender: Male Ht: 72 in Wt: 155 lbs BSA: 1.88 m2 HR: 105 bpm BP: 86 / 52 mmHg Technical Quality: Fair Exam Date: 05/28/2023 8:36 AM Exam Location: [facility] Exam Room: ICU6 Patient Status: Inpatient Admit Date: 05/27/2023 Staff Ordering Physician: Gunjan Rao PA-C Lithographic Proofer: Merline Sanchez RDCS Attending Provider: Justino Cope MD Referring Physician: Maira MIRAMONTES; Exam Type: CA echo doppler color flow Study Info Indications - ELEVATED TROPONINS AMS Complete two-dimensional, color flow and Doppler transthoracic echocardiogram is performed. Summary 1. Complete two-dimensional, color flow and Doppler transthoracic echocardiogram is performed. 2. Left ventricular systolic function is severely reduced, estimated at 30-35%. 3. There is mild mitral valve regurgitation. 4. There is trace tricuspid valve regurgitation. 5. Mild pulmonary hypertension, estimated pulmonary arterial systolic pressure is 38 mmHg. Left Ventricle Left ventricular chamber dimension is normal. Left ventricular systolic function is severely reduced, estimated at 30-35%. There is no increased left ventricular wall thickness. Left ventricular septal wall motion is normal. The left ventricular diastolic function is abnormal. Right Ventricle Right ventricular chamber dimension is normal. Right ventricular systolic function is normal. Left Atria Left atrial chamber dimension is normal. Right Atria Right atrial chamber dimension is normal. Atrial Septum Intact interatrial septum visualized by color flow imaging. Aortic Valve The aortic valve is trileaflet. There is no aortic valve sclerosis. There is no aortic valve stenosis. There is no aortic valve regurgitation. Pulmonic Valve The pulmonic valve is normal. There is no pulmonic valve stenosis. There is no pulmonic regurgitation. Mitral Valve The mitral valve has normal leaflets. There is no mitral valve stenosis. There is mild mitral valve regurgitation. Tricuspid Valve The tricuspid valve leaflets are normal. There is no significant tricuspid valve stenosis. There is trace tricuspid valve regurgitation. Mild pulmonary hypertension, estimated pulmonary arterial systolic pressure is 38 mmHg. Pericardium/Pleural The pericardium appears normal. There is no pericardial effusion. Inferior Vena Cava Dilated inferior vena cava with <50% collapse upon inspiration consistent with elevated right atrial pressure, 15 mmHg. Aorta The aortic root size at the sinus of Valsalva is normal. The prox ascending aorta size is normal. Left Ventricular Outflow Tract Name Value Normal LVOT 2D LVOT Diameter 2.1 cm LVOT Doppler LVOT Peak Gradient 2 mmHg LVOT Mean Gradient 1 mmHg LVOT VTI 11 cm LVOT VTI/AV VTI Ratio 0.8 LVOT Stroke Volume 37 ml LVOT CO 9.8 l/min LVOT CI 5.2 l/min/m2 Pulmonic Valve
[2023-05-29] VITALS (49 sets, daily range): BP systolic 98–139; BP diastolic 54–78; PULSE 79–96; RESP 20–22; TEMP 36.3–37.1; O2SAT 92–100
[2023-05-29] MEDS: SODIUM BICARBONATE 8.4% 150 MEQ in DEXTROSE 5% 1,000 ML 950 ML 125 MEQ IV CONT (01:44)
[2023-05-29] MEDS: LEVALBUTEROL NEB 1.25 MG/3 ML 0.63 MG INHALATION ×3 (02:12→13:15)
[2023-05-29] MEDS: IPRATROPIUM BR 0.02% INH SOLN 0.5 MG/2.5 ML VIAL INHALATION ×3 (02:12→13:15)
[2023-05-29 05:22] LABS: Base Excess ABG -4.5 mEq/l (+/-2.0); Carboxyhemoglobin 0.3 % THb (0-2.0); Fractional Inspired Oxygen 30 %; HCO3 ABG 17.7 mEq/l (22.0-26.0); Methemoglobin ABG 0.3 %THb (0-1.5); Oxygen Saturation ABG 97.7 % (95.0-100.0); Oxyhemoglobin 95.9 % THb (90.0-100.0); PCO2 ABG 25.1 mmHg (35.0-45.0); PO2 ABG 94.4 mmHg (80.0-100.0); PO2 FiO2 Ratio Arterial Blood 3.15 %; Reduced Hemoglobin 3.5 %THb (0-5.0); Total Hemoglobin 12.5 g/dL (12.0-18.0); pH ABG 7.466 (7.350-7.450)
[2023-05-29 05:23] LABS: Site Drawn ARTLINE
[2023-05-29 05:24] LABS: Lactic Acid Reflex 3.4 mmol/L (0.7-2.0)
[2023-05-29 05:24] LABS: Arterial Blood Gas PEEP 5 cmH2O; Arterial Blood Gas Tidal Volume 500 ml; Arterial Blood Gas Vent Mode CMV; Arterial Blood Gas Ventilator rate 22 /MIN; Device VENTILATOR
[2023-05-29 05:29] LABS: Alanine Aminotransferase 460 U/L (6-50); Albumin Level 2.9 g/dL (3.5-5.1); Alkaline Phosphatase 55 U/L (38-126); Anion Gap 11 mmol/L (8-16); Aspartate Amino Transferase 681 U/L (17-59); Bilirubin,Total 3.6 mg/dL (0.2-1.3); Blood Urea Nitrogen 42 mg/dL (9-20); Calcium 6.6 mg/dL (8.4-10.2); Carbon Dioxide 22 mmol/L (22-30); Chloride 102 mmol/L (98-107); Estimated CRCL calculation 14 ml/min; Estimated Glomerular Filt Rate 15; Glucose 168 mg/dL (65-110); Magnesium 1.5 mg/dL (1.6-2.3); Phosphorus 4.9 mg/dL (2.5-4.5); Potassium 3.3 mmol/L (3.4-5.0); Sodium 135 mmol/L (137-145)
[2023-05-29] MEDS: ALBUMIN HUMAN 25% 25 GM/100 ML 100 ML IVPB ×2 (05:31→12:03)
[2023-05-29] MEDS: PIPERACILLIN/TAZ 2.25G/NS 50ML 2.25 GM/50 ML BAG IVPB ×2 (05:31→12:03)
[2023-05-29 05:32] LABS: INR 2.2; Partial Thromboplastin Time 43.9 SECONDS (22.3-36.8); Prothrombin Time 26.5 Seconds (11.1-14.7)
[2023-05-29] MEDS: CENTRAL LINE FLUSH 10 ML IV PUSH (05:32)
[2023-05-29 05:36] LABS: Lipase 527 U/L (23-300)
[2023-05-29 05:49] LABS: Creatine Kinase 11673 U/L (55-170)
--- NOTE | 2023-05-29 07:52 | WPDINTPN ---
Progress Note: A&P Assessment and Plan (1) Heat stroke: Qualifiers: Encounter type: initial encounter Qualified Code(s): T67.01XA - Heatstroke and sunstroke, initial encounter Code(s): T67.01XA - Heatstroke and sunstroke, initial encounter Status: Acute Assessment and Plan: 05/27 admitted to the ICU. Due to the weather this week being significantly hot with excessive heat warning. Patient does not have air conditioning at home or in his car. He went with his sister to do groceries and was found to be unstable and wobbly on his feet, he also had fecal incontinence, the grocery store staff assisted him back in the car. When patient reached home, he was found unresponsive and EMS was called. -in the ER patient's core body temperature was 109.6?F -patient was emergently cooled with ice packs and cooling blanket from the ICU -currently body temperature is within normal limits -continue to monitor (2) Acute respiratory failure: Code(s): J96.00 - Acute respiratory failure, unspecified whether with hypoxia or hypercapnia Status: Acute Assessment and Plan: Patient was unresponsive, requiring intubation, mechanical ventilation -intubated on 05/28/2023 in the ER -currently on CMV mode of ventilation, peep of 5, 50% FiO2 -ABGs reviewed, ventilator adjusted -chest x-ray this morning: Mild patchy bibasilar infiltrate and/atelectasis -continue bronchodilators -sedated with fentanyl and Versed infusion, maintain RASS of -2 (3) Acute kidney injury: Code(s): N17.9 - Acute kidney failure, unspecified Status: Acute Assessment and Plan: Acute kidney injury most likely related to rhabdomyolysis, hypovolemia, heating stroke hypotension, shock -urine output remains low -BUN and creatinine trending up -continue maintenance IV fluids with sodium bicarb infusion -05/28 renal ultrasound: Bilateral increased renal cortical echogenicity consistent with medical renal disease. No hydronephrosis -urine lytes did not show prerenal picture, no urine eosinophils were seen -nephrology is following the patient -may require CRRT/hemodialysis, patient is on vasopressors (4) Rhabdomyolysis: Qualifiers: Rhabdomyolysis type: non-traumatic Qualified Code(s): M62.82 - Rhabdomyolysis Code(s): M62.82 - Rhabdomyolysis Status: Acute Assessment and Plan: Patient has developed rhabdomyolysis likely secondary to heat stroke/exertion heat illness -patient adequately fluid-resuscitated -CK levels levels trending down -will decrease rate on the sodium bicarb infusion -continue to trend CK level (5) Elevated troponin: Code(s): R77.8 - Other specified abnormalities of plasma proteins Status: Acute Assessment and Plan: elevated troponin, likely ACS or myocardial injury due to heart stroke, renal injury, shock -troponin 0.404--> 3.370--> 4.790-->3.790 -d/w cardiology, will hold heparin infusion due to increase risk of bleeding secondary to coagulopathy and thrombocytopenia -continue asa 81 mg 05/28/2023 echocardiogram: Summary ? 1. Complete two-dimensional, color flow and Doppler transthoracic echocardiogram is performed. ? 2. Left ventricular systolic function is severely reduced, estimated at 30-35%. ? 3. There is mild mitral valve regurgitation. ? 4. There is trace tricuspid valve regurgitation. ? 5. Mild pulmonary hypertension, estimated pulmonary arterial systolic pressure is 38 mmHg. (6) Transaminitis: Code(s): R74.01 - Elevation of levels of liver transaminase levels Status: Acute Assessment and Plan: Liver dysfunction, with elevated LFTs likely due to heat stroke illness continue to maintain MAP > 70 mmHg for adequate end organ perfusion -liver enzymes elevated but stable -continue to monitor (7) Shock: Code(s): R57.9 - Shock, unspecified Status: Acute Assessment and Plan: Pt presented with hypotension, has been adeq
[2023-05-29] MEDS: LORazepam INJ (*CRX) 2 MG/ML VIAL IV PUSH ×2 (07:54→13:41)
[2023-05-29] MEDS: levETIRAcetam 500MG/NACL 100ML 500 MG/100 ML BAG 400 MG IVPB (07:55)
[2023-05-29] MEDS: PANTOPRAZOLE SODIUM IV 40 MG VIAL IV PUSH (07:56)
[2023-05-29] MEDS: ASPIRIN 81 MG CHEWABLE TABLET PO (07:56)
[2023-05-29] MEDS: MINERAL OIL/WHITE PETROLATUM OINTMENT 1 APPLIC EACH EYE (07:57)
[2023-05-29 08:13] LABS: Reflex Lactic Acid Yes or No Add Lactic
[2023-05-29 08:25] LABS: Hematocrit 31.9 % (42.0-52.0); Hemoglobin 11.3 g/dL (14.0-18.0); Mean Corpuscular HGB Conc 35.4 g/dl (32-36); Mean Corpuscular Volume 76.3 fl (80-100); Mean Platelet Volume 10.8 fl (7.4-10.4); Platelet Count Result 27 k/mm3 (150-375); Red Blood Count 4.18 M/mm3 (4.6-6.20); Red Cell Distribution Width 15.9 % (11.5-14.5); White Blood Count 14.2 K/mm3 (4.5-10.0)
[2023-05-29 08:33] LABS: Lactic Acid 3.2 mmol/L (0.7-2.0)
[2023-05-29 08:39] LABS: Alanine Aminotransferase 438 U/L (6-50); Albumin Level 3.1 g/dL (3.5-5.1); Alkaline Phosphatase 50 U/L (38-126); Anion Gap 11 mmol/L (8-16); Aspartate Amino Transferase 684 U/L (17-59); Bilirubin,Total 3.4 mg/dL (0.2-1.3); Blood Urea Nitrogen 43 mg/dL (9-20); Calcium 6.5 mg/dL (8.4-10.2); Carbon Dioxide 25 mmol/L (22-30); Chloride 101 mmol/L (98-107); Estimated CRCL calculation 14 ml/min; Estimated Glomerular Filt Rate 14; Glucose 144 mg/dL (65-110); Potassium 3.2 mmol/L (3.4-5.0); Sodium 137 mmol/L (137-145)
--- NOTE | 2023-05-29 09:08 | PM.IMPN ---
Progress Note: A&P Assessment and Plan (1) Shock: Code(s): R57.9 - Shock, unspecified Status: Acute Assessment and Plan: Pt presented with severe hypotension, lactic acidosis (6.4) and severe hypothermia related to heat stroke. He was adequately fluid resuscitated. Central line inserted in ER. He was started on levophed and vasopressin to maintain MAP > 70 mmHg He was started on Zosyn (05/27) 05/27 blood cultures: Pending 05/27 urine cultures: Pending 05/28 sputum culture: Pending WBC climbing and now with 32% bands. -continue Levophed and Vasopressin; wean as BP allows -continue Zosyn -follow up on culture results (2) Acute respiratory failure: Code(s): J96.00 - Acute respiratory failure, unspecified whether with hypoxia or hypercapnia Status: Acute Assessment and Plan: Patient was unresponsive in the field requiring intubation on 05/27 CXR on admission showing elevation of the left asad-diaphragm CXR today showing mild patchy bibasilar airspace disease He remains intubated, sedated and on mechanical ventilation -continue bronchodilators -continue sedation with fentanyl and Versed -wean vent as condition allows. (3) Heat stroke: Qualifiers: Encounter type: initial encounter Qualified Code(s): T67.01XA - Heatstroke and sunstroke, initial encounter Code(s): T67.01XA - Heatstroke and sunstroke, initial encounter Status: Acute Assessment and Plan: The weather the prior week was significantly hot. Patient does not have air conditioning at home or in his car. Patient was food shopping with sister but was unsteady and had fecal incontinence requiring assistance back to his car. When at home, patient became unresponsive. EMS called and patient was intubated in the field. Patient's core rectal body temperature was 109.6?F and was emergently cooled with ice packs and cooling blanket from the ICU -currently body temperature is within normal limits -continue to monitor (4) Acute kidney injury: Code(s): N17.9 - Acute kidney failure, unspecified Status: Acute Assessment and Plan: Acute kidney injury most likely related to rhabdomyolysis, hypovolemia, heating stroke, and shock Cr 1.8, lactic acidosis with bicarb 16 on admission Urine output remains low (150mL yesterday) Bicarb normal now. Cr climbed to 4.9 today. Lactic still 3.2 Renal US - Bilateral increased renal cortical echogenicity consistent with medical renal disease. No hydronephrosis Urine lytes did not show prerenal picture, no urine eosinophils were seen Nephrology following and appreciate their input -continue maintenance IV fluids with sodium bicarb infusion -may require CRRT/hemodialysis, patient is on vasopressors (5) Rhabdomyolysis: Qualifiers: Rhabdomyolysis type: non-traumatic Qualified Code(s): M62.82 - Rhabdomyolysis Code(s): M62.82 - Rhabdomyolysis Status: Acute Assessment and Plan: Patient has developed rhabdomyolysis likely secondary to heat stroke/exertion heat illness TCK was 2146 but climbed to >16K. Patient [place] [id number] -continue IV fluids -continue to trend CK level (6) Elevated troponin: Code(s): R77.8 - Other specified abnormalities of plasma proteins Status: Acute Assessment and Plan: Patient with elevated troponin on admission that peaked at 4.8 likely ACS. Consider also myocardial injury due to heart stroke, renal injury, shock and rhabdomyolysis. Cardiology consulted and decided to hold heparin infusion due to increase risk of bleeding secondary to coagulopathy and thrombocytopenia Echo showing LV dysfunction with EF 30-35%, mild valvular disease and mild pulmonary HTN Tele showing sinus arrhythmia. -ASA started but plan to hold now given the possible DIC -Ischemic evaluation once improved. (7) Transaminitis: Code(s): R74.01 - Elevation of leve
[2023-05-29 09:16] LABS: Band Neutrophils Percent 32 % (0-6); Lymphocytes Absolute Manual 1.56 K/mm3 (1.1-4.5); Metamyelocytes Percent 7 %; Monocytes Absolute Manual 0.42 K/mm3 (0.1-0.90); Monocytes Percent Manual 3 % (3-9); Neutrophils Absolute Manual 11.21 K/mm3 (1.3-6.7); Neutrophils Percent Manual 47 % (46-73); Platelet Estimate Decreased (Adequate); Schistocytes None Seen (NORMAL); Total Cells Counted 100
[2023-05-29 09:18] LABS: Hypochromasia 1+ (NORMAL)
[2023-05-29] MEDS: VALPROIC ACID INJ 500 MG in DEXTROSE 5% 100 ML 100 MG IVPB (09:41)
--- NOTE | 2023-05-29 09:43 | PM.PNCARD ---
Progress Note: A&P Assessment and Plan (1) Elevated troponin: Code(s): R77.8 - Other specified abnormalities of plasma proteins Status: Acute Assessment and Plan: In regards to troponin elevation, patient presented to the hospital with heat stroke with core temperature 109?. Evidence of acute renal failure, hypotension, rhabdomyolysis. Suspect that this is all demand ischemia. Troponins elevated at 4.8. Trended down to 3.9 Of echocardiogram shows low ejection fraction 35% which is likely secondary to stress from acute illness however will need ischemic evaluation when the patient recovers. -at this time I will discontinue aspirin because of platelet count today 27 K. (2) Heat stroke: Qualifiers: Encounter type: initial encounter Qualified Code(s): T67.01XA - Heatstroke and sunstroke, initial encounter Code(s): T67.01XA - Heatstroke and sunstroke, initial encounter Status: Acute Assessment and Plan: Core temperature on arrival 109. Currently being treated (3) Rhabdomyolysis: Qualifiers: Rhabdomyolysis type: non-traumatic Qualified Code(s): M62.82 - Rhabdomyolysis Code(s): M62.82 - Rhabdomyolysis Status: Acute Assessment and Plan: CPK above 16,000. Received IV fluids. (4) Acute hypotension: Code(s): I95.9 - Hypotension, unspecified Status: Acute Assessment and Plan: Being resuscitated with IV fluids. Again echocardiogram ejection fraction 35%. On vasopressin and Levophed. (5) Acute kidney injury: Code(s): N17.9 - Acute kidney failure, unspecified Status: Acute Assessment and Plan: Multifactorial secondary to hypovolemia, rhabdomyolysis. Creatinine worsening. Consider CRRT. Subjective Date/time seen: Date of service 05/29/23 09:43 Interval history: 05/29/2023-he was started on vasopressin yesterday and seems his blood pressure responsive to it. Levophed disease reduced. Not making much urine. His heart rhythm is sinus with frequent PACs. INR is elevated, low platelet count... Review of Systems Review of Systems: Unable to obtain because patient is intubated Exam Narrative: No acute distress Const: Other: No fever HENMT: Other: No ear discharge Eyes: Sclera: sclerae normal Neck: Neck: supple Resp: Other: Decreased air entry bilaterally Cardio: Other: Sinus rhythm with frequent PACs. Tracie GI: Inspection: non-distended Skin: Other: Clear urine Extrem: Other: No edema Psych: Other: Unable to assess Objective Data Vital Signs Vital Signs: Vital Signs - 24 hr 05/28/23 10:00 05/28/23 10:20 05/28/23 10:54 Temperature 36.2 C L Pulse Rate 106 H 103 H 98 Respiratory Rate 22 H Blood Pressure 117/67 117/67 Pulse Oximetry 100 100 Oxygen Delivery Mechanical Ventilation Fraction of Inspired Oxygen 50 05/28/23 12:36 05/28/23 12:41 05/28/23 13:00 Temperature Pulse Rate 90 88 86 Respiratory Rate Blood Pressure 93/54 L 94/55 L 93/55 L Pulse Oximetry Oxygen Delivery Fraction of Inspired Oxygen 05/28/23 13:52 05/28/23 14:04 05/28/23 14:06 Temperature 35.4 C L 35.4 C L 35.4 C L Pulse Rate 85 85 85 Respiratory Rate 22 H 22 H 22 H Blood Pressure 101/57 L 99/59 L 97/57 L Pulse Oximetry 100 97 100 Oxygen Delivery Fraction of Inspired Oxygen 05/28/23 14:22 05/28/23 13:05 05/28/23 13:05 Temperature 35.4 C L Pulse Rate 84 88 88 Respiratory Rate 22 H 22 H Blood Pressure 98/57 L Pulse Oximetry 100 100 Oxygen Delivery Mechanical Ventilation Fraction of Inspired Oxygen 40 05/28/23 13:15 05/28/23 10:00 05/28/23 12:00 Temperature Pulse Rate 90 106 H 95 Respiratory Rate 22 H Blood Pressure Pulse Oximetry Oxygen Delivery Fraction of Inspired Oxygen 05/28/23 14:00 05/28/23 12:00 05/28/23 14:46 Temperature 35.6 C L 35.4 C L Pul
[2023-05-29 10:07] LABS: Hepatitis B Surface Anti Res Indeterminate
[2023-05-29 10:14] LABS: Magnesium 1.5 mg/dL (1.6-2.3)
[2023-05-29] MEDS: MAGNESIUM SULF 2 GM/WATER 50ML 2 GM/50 ML BAG IVPB (10:20)
[2023-05-29] MEDS: POTASSIUM CHLORIDE 20 MEQ PACKET (FOR LIQUID) FEED TUBE (10:20)
[2023-05-29 10:23] LABS: Immature Platelet Fraction Pct 15.1 % (0.9-11.2); Platelet Count Result 28 k/mm3 (150-375)
[2023-05-29] MEDS: MIDAZOLAM 100MG/NS 100ML(*CRX) 100 MG/100 ML BAG 6 MG IV CONT (10:31)
[2023-05-29 10:32] LABS: INR 2.4; Prothrombin Time 28.1 Seconds (11.1-14.7)
[2023-05-29 10:33] LABS: Fibrinogen 183 mg/dl (215-510); Partial Thromboplastin Time 43.1 SECONDS (22.3-36.8)
--- NOTE | 2023-05-29 10:47 | PC.NURSE ---
Spoke with Dr. Martinez about patient transfer to outside facility for CRRT when accepted. okayed to fly patient for transport.
[2023-05-29 10:57] LABS: D Dimer > 20.00 ug/mL (<0.48)
--- NOTE | 2023-05-29 11:15 | PM.PNNEP ---
Progress Note: A&P Assessment and Plan (1) Acute kidney injury: Code(s): N17.9 - Acute kidney failure, unspecified Status: Acute Assessment and Plan: unknown baseline creatinine may have a component of CKD based on available history (i.e alcohol and drug abuse) and renal ultrasound findings suspect ATN with multifactorial etiology: rhabdomyolysis prerenal factors/hypovolemia heat stroke/elevated body temperature hemodynamic instability/hypotension shock element of sepsis (?) evaluation to date noted: renal ultrasound with medical renal disease/CKD; no obstruction urine electrolytes non-prerenal urine eosinophils negative agree with bicarb fluids for now BUN and creatinine rising with decreasing urine output 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 -- he may require CRRT follow trend of repeat labs and UOP (2) Heat stroke: Qualifiers: Encounter type: initial encounter Qualified Code(s): T67.01XA - Heatstroke and sunstroke, initial encounter Code(s): T67.01XA - Heatstroke and sunstroke, initial encounter Status: Acute Assessment and Plan: as noted by body temperature of 109.6 degrees on admission emergently cooled with ice packs and cooling blanket temperature has since improved discovered patient was without air conditioning this week in spite of excessive heat warnings continue supportive therapy (3) Shock: Code(s): R57.9 - Shock, unspecified Status: Acute Assessment and Plan: as noted on presentation with systolic BPs reportedly in the 40s s/p aggressive IVF resuscitation in ER and ICU required central line placement and initiation of vasopressor therapy - wean as tolerated imaging to date noted follow culture data empiric antibiotics follow trend of hemodynamics (4) Acute respiratory failure: Code(s): J96.00 - Acute respiratory failure, unspecified whether with hypoxia or hypercapnia Status: Acute Assessment and Plan: intubated in ER due to being unresponsive and inability to protect airway remains on mechanical ventilation weaning when more stable (5) Rhabdomyolysis: Qualifiers: Rhabdomyolysis type: non-traumatic Qualified Code(s): M62.82 - Rhabdomyolysis Code(s): M62.82 - Rhabdomyolysis Status: Acute Assessment and Plan: likely precipitated by heat stroke/elevated body temperatures s/p aggressive IVF resuscitation (~ 3L) in the ER and ICU CK noted to quite elevated - trending down IVFs changed to bicarb infusion (6) Elevated troponin: Code(s): R77.8 - Other specified abnormalities of plasma proteins Status: Acute Assessment and Plan: trend noted suspect demand ischemia given acute illness Cardiology following with recommendations noted (7) Transaminitis: Code(s): R74.01 - Elevation of levels of liver transaminase levels Status: Acute Assessment and Plan: due to hemodynamic instability and heat stroke complicated by coagulopathy as well noted low platelet count and fibrinogen s/p FFP and cryoprecipitate transfusion follow PT/INR continue efforts to maintain MAP (8) Seizures: Code(s): R56.9 - Unspecified convulsions Status: Acute Assessment and Plan: seizure-like activity noted in ER and by staff (possible an issue earlier given 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 Martinez. Will continue to follow. Subjective Date/time seen: 05/29/23 11:15 Interval history: Follow-up for acute kidney injury/acute renal failure, hyperkalemia, and rhabdomyolysis. Remains intubated/sedated and on mechanical ventilation; continues to require vasopressor support (levophed and vasopressin) to maintain MAP; CPK levels trending down but BUN and creatinine rising in association with declining/low urine output; L
--- NOTE | 2023-05-29 11:15 | P.PNNP_ITS ---
Progress Note: A&P Assessment and Plan (1) Acute kidney injury: Code(s): N17.9 - Acute kidney failure, unspecified Status: Acute Assessment and Plan: * unknown baseline creatinine * may have a component of CKD based on available history (i.e alcohol and drug abuse) and renal ultrasound findings * suspect ATN with multifactorial etiology: * rhabdomyolysis * prerenal factors/hypovolemia * heat stroke/elevated body temperature * hemodynamic instability/hypotension * shock * element of sepsis (?) * evaluation to date noted: * renal ultrasound with medical renal disease/CKD; no obstruction * urine electrolytes non-prerenal * urine eosinophils negative * agree with bicarb fluids for now * BUN and creatinine rising with decreasing urine output * 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 -- he may require CRRT * follow trend of repeat labs and UOP (2) Heat stroke: Qualifiers: Encounter type: initial encounter Qualified Code(s): T67.01XA - Heatstroke and sunstroke, initial encounter Code(s): T67.01XA - Heatstroke and sunstroke, initial encounter Status: Acute Assessment and Plan: * as noted by body temperature of 109.6 degrees on admission * emergently cooled with ice packs and cooling blanket * temperature has since improved * discovered patient was without air conditioning this week in spite of excessive heat warnings * continue supportive therapy (3) Shock: Code(s): R57.9 - Shock, unspecified Status: Acute Assessment and Plan: * as noted on presentation with systolic BPs reportedly in the 40s * s/p aggressive IVF resuscitation in ER and ICU * required central line placement and initiation of vasopressor therapy - wean as tolerated * imaging to date noted * follow culture data * empiric antibiotics * follow trend of hemodynamics (4) Acute respiratory failure: Code(s): J96.00 - Acute respiratory failure, unspecified whether with hypoxia or hypercapnia Status: Acute Assessment and Plan: * intubated in ER due to being unresponsive and inability to protect airway * remains on mechanical ventilation * weaning when more stable (5) Rhabdomyolysis: Qualifiers: Rhabdomyolysis type: non-traumatic Qualified Code(s): M62.82 - Rhabdomyolysis Code(s): M62.82 - Rhabdomyolysis Status: Acute Assessment and Plan: * likely precipitated by heat stroke/elevated body temperatures * s/p aggressive IVF resuscitation (~ 3L) in the ER and ICU * CK noted to quite elevated - trending down * IVFs changed to bicarb infusion (6) Elevated troponin: Code(s): R77.8 - Other specified abnormalities of plasma proteins Status: Acute Assessment and Plan: * trend noted * suspect demand ischemia given acute illness * Cardiology following with recommendations noted (7) Transaminitis: Code(s): R74.01 - Elevation of levels of liver transaminase levels Status: Acute Assessment and Plan: * due to hemodynamic instability and heat stroke * complicated by coagulopathy as well * noted low platelet count and fibrinogen * s/p FFP and cryoprecipitate transfusion * follow PT/INR * continue efforts to maintain MAP (8) Seizures: Code(s): R56.9 - Unspecified convulsions Status: Acute Assessment and Plan: * seizure-like activity noted in ER and by staff (possible an issue earlier given noted history of fecal incontinence [employer]) * st
--- NOTE | 2023-05-29 11:39 | WPDNEURCNPN ---
Assessment and Plan Assessment and plan (1) Heat stroke: Qualifiers: Encounter type: initial encounter Qualified Code(s): T67.01XA - Heatstroke and sunstroke, initial encounter Code(s): T67.01XA - Heatstroke and sunstroke, initial encounter Status: Acute (2) Dementia: Code(s): F03.90 - Unspecified dementia, unspecified severity, without behavioral disturbance, psychotic disturbance, mood disturbance, and anxiety Status: Acute Plan will obtain the EEG to evaluate the neurological status in the meantime treatment is being continued as such Consult date: 05/29/23 HPI: Pedro Bowman is a 67 year old male admitted to the hospital through the emergency room with change in the mental status reportedly he was found in his way [place] unresponsive, EMS checked him for the blood glucose and by the time he came to the emergency room he was getting bad he was intubated in the field his temperature was noted leave 106 F he was definitely unresponsive in the ER on arrival further information was obtained from the sister who reported they went to the grocery store when attempted to go inside he was noted to be wobbly past his stool on himself help in to the car sister drove him home but his mental status was changed he gave him a glass of water but she could not get him out of the vehicle and she called the EMS. He was not receiving any medication, noted not allergic to any medication, does have ongoing history for dementia with substance abuse including alcohol and heroin though not currently and is a former smoker initial examination documented him to be unresponsive on ventilation with bad, in the hospital he was intubated and was managed for the fever with the hypotension and the diagnosis of encephalopathy with documented rhabdomyolysis as well, as been treated in ICU with acute respiratory failure, underlying heat stroke, and has been on ventilator, has also been seen by the lead caregiver for elevated troponins, documented to have sinus rhythm with minimal ST depression incomplete right bundle branch block, 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 Surgical History Surgical History Surgical history unknown Family History Family History Mother Hypertension Cerebrovascular accident Mother No problems noted. Other Family history unknown Social History Social History Social History: The patient lives with his sister in [place]. 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 I believe the patient is a former smoker. Surrogate medical decision maker: Jimbo or Yanick Leighton, siblings. Code status: Full code. Smoking packs per day: 0.5 Smoking cigarettes per day: 10.0 Smoking status: Heavy tobacco smoker Tobacco type: cigarettes Second hand tobacco smoke exposure: Yes Alcohol intake: former Substance use: former Spiritual care concerns: No Meds Home Medications and Allergies Home Medications Medication Instructions Recorded Confirmed Type No Home Medications 05/28/23 05/28/23 History Allergies Allergy/AdvReac Type Severity Reaction Status Date / Time No Known Allergies Allergy Unverified 04/14/15 13:32 Vital Signs Vital Signs - 24 hr 05/28/23 12:36 05/28/23 12:41 05/28/23 13:00 Temperature Pulse Rate 90 88 86 Respiratory Rate Blood Pre
[2023-05-29] MEDS: SODIUM CHLORIDE 0.9% IV 250 ML 30 ML IV CONT (12:00)
[2023-05-29] MEDS: NOREPINEPHRINE 8 MG/D5W 250 ML 8 MG/250 ML BAG 13.13 MG IV CONT (12:00)
[2023-05-29] MEDS: SODIUM BICARBONATE 8.4% 150 MEQ in DEXTROSE 5% 1,000 ML 950 ML 75 MEQ IV CONT (12:03)
--- NOTE | 2023-05-29 12:30 | PC.NURSE ---
Patient accepted to [facility] room 328 Dr Castillo accepted
[2023-05-29 13:11] LABS: Glucose Point of Care 126 mg/dl (65-105)
[2023-05-29] MEDS: FENTANYL 2,500MCG/NS250ML(*CRX 2,500 MCG/250 ML BAG 7.5 MCG IV CONT (13:44)
--- NOTE | 2023-05-29 14:30 | PC.NURSE ---
Vital sign stable when patient left ICU. Central line, art line and 3 peripheral IVs intact. Vaso, fentanyl, versad, levo, and bicarb drip infusing as charted in MAR. NG and Katz intact.
[2023-06-01 14:44] LABS: Hepatitis C RNA, Quant PCR <15 IU/mL
[2023-06-02 18:36] LABS: Chloride Rand Ur 79 mmol/L (32-290); Chloride/Creatinine Rand Ur 188 (23-275); Creatinine Random Urine 42 mg/dL (20-320)
--- NOTE | 2023-06-03 17:59 | PM.TDS ---
Transfer Discharge Sum: Prov Provider Date of admission: 05/27/23 22:38 Primary care physician: Jorge Alberto Rivera MD Admitting clinician: Justino Cope MD Consults: 05/27/23 Consult to Physician Routine Comment: Consulting Provider: Elias Martinez mail clerk/MD group to consult: Juan Reason for consultation: Intubated, on pressors, hyperthermic Has provider been notified: Yes 05/28/23 Consult to Physician Routine Comment: Consulting Provider: Mark Suarez Reason for consultation: elevated troponins Has provider been notified: Yes 05/28/23 13:02 Consult to Physician Routine Comment: Consulting Provider: Dora Clayton mail clerk/MD group to consult: NEPHROLOGY Reason for consultation: MILAN, rhabdo Has provider been notified: Yes 05/29/23 08:15 Consult to Physician Routine Comment: Consulting Provider: Ambrosio Palacios mail clerk/MD group to consult: Neurology Reason for consultation: Seizures, heat stroke Has provider been notified: Yes DS: Admitting Diagnosis Discharge Date 05/29/23 Admitting Diagnosis Unresponsive DS: Discharge Diagnosis Discharge Diagnosis (1) Shock: Code(s): R57.9 - Shock, unspecified Status: Acute (2) Acute respiratory failure: Code(s): J96.00 - Acute respiratory failure, unspecified whether with hypoxia or hypercapnia Status: Acute (3) Heat stroke: Qualifiers: Encounter type: initial encounter Qualified Code(s): T67.01XA - Heatstroke and sunstroke, initial encounter Code(s): T67.01XA - Heatstroke and sunstroke, initial encounter Status: Acute (4) Acute kidney injury: Code(s): N17.9 - Acute kidney failure, unspecified Status: Acute (5) Rhabdomyolysis: Qualifiers: Rhabdomyolysis type: non-traumatic Qualified Code(s): M62.82 - Rhabdomyolysis Code(s): M62.82 - Rhabdomyolysis Status: Acute (6) Elevated troponin: Code(s): R77.8 - Other specified abnormalities of plasma proteins Status: Acute (7) Transaminitis: Code(s): R74.01 - Elevation of levels of liver transaminase levels Status: Acute (8) Seizures: Code(s): R56.9 - Unspecified convulsions Status: Acute (9) Coagulopathy: Code(s): D68.9 - Coagulation defect, unspecified Status: Acute (10) Encephalopathy: Code(s): G93.40 - Encephalopathy, unspecified Status: Acute Transfer Discharge Sum: Med Medications Active and Home Medications: Home Medications No Home Medications 05/28/23 [History Confirmed 05/28/23] Transfer Discharge Sum: Hosp Hospital Course Hospital course: Pedro Bowman is a 67yo male with dementia and hx of alcohol and heroin abuse here after being found unresponsive. He ultimately was found to have heat stroke with shock, hyperthermia, AMS, acute respiratory failure, rhabdomyolysis, MILAN, lactic acidosis, elevated LFTs,coagulopathy, elevated troponin, and seizures. Patient's core rectal body temperature was 109.6?F. Please see H&P for details. Pt presented with severe hypotension, lactic acidosis (6.4) and severe hypothermia related to heat stroke. Patient was unresponsive in the field requiring intubation on 05/27. He was adequately fluid resuscitated. Central line inserted in ER. He was started on levophed and vasopressin to maintain MAP > 70 mmHg. He was started on Zosyn. CXR on admission showing elevation of the left asad-diaphragm. Blood and Urine cultures were negative. Sputum culture growing yeast but suspected colonization. WBC climbing with 32% bands. The weather the prior week was significantly hot. Patient does not have air conditioning at home or in his car. Patient was food shopping with sister but was unsteady and had fecal incontinence requiring assistance back to his car. When at home, patient became unresponsive. EMS called and patient was intubated in the field. In the ED, the patient's c
== END 2023-05-29 14:27 | disposition short-term general hospital (02) | DRG 815 ==
LOC: ANHED 19:05 → ANHICU 05-28 02:39
PROVIDERS: Internal Medicine; Internal Medicine Nephrology; Physician Assistant; Admitting Provider Internal Medicine; Emergency Provider Student in an Organized Health Care Education/Training Program; PCP Emergency Medicine; Visit Provider Internal Medicine
DX: T67.01XA Heatstroke and sunstroke, initial encounter (principal); J96.00 Acute respiratory failure, unspecified whether with hypoxia or hypercapnia; G93.40 Encephalopathy, unspecified; N17.9 Acute kidney failure, unspecified; E87.20 Acidosis, unspecified; F03.90 Unspecified dementia, unspecified severity, without behavioral disturbance, psychotic disturbance, mood disturbance, and anxiety; F17.210 Nicotine dependence, cigarettes, uncomplicated; I45.19 Other right bundle-branch block; I95.9 Hypotension, unspecified; M62.82 Rhabdomyolysis; R74.01 Elevation of levels of liver transaminase levels; R77.8 Other specified abnormalities of plasma proteins; R15.9 Full incontinence of feces; R56.9 Unspecified convulsions; R79.1 Abnormal coagulation profile; Z20.822 Contact with and (suspected) exposure to COVID-19
CPT/HCPCS: 31500; 36415; 36430; 36556; 36600; 70450; 71045; 71260; 74177; 76705; 76775; 80053; 80074; 80307; 81001; 82140; 82375; 82436; 82550; 82570; 82607; 82805; 82948; 83050; 83605; 83690; 83735; 84100; 84133; 84300; 84443; 84484; 85025; 85049; 85055; 85380; 85384; 85610; 85730; 85999; 86706; 86850; 86900; 86901; 87040; 87070; 87086; 87205; 87522; 87635; 93005; 93306; 94003; 94640; 96361; 96365; 96366; 99291; A9270; C1751; C9113; J1953; J2060; J2250; J2543; J2997; J3010; J3475; J3480; J7030; J7050; J7070; J7120; P9012; P9017; P9034; P9047; Q9967